=== PATIENT | female | born 1990 | race Caucasian/White ===

== ENCOUNTER 2023-12-16 16:22 | Emergency (ER) | payer SELFPAY ==
[~2023-12-16] VITALS: Ht 160 cm; Wt 69.0 kg
[2023-12-16 16:25] VITALS: BP 158/90; PULSE 78; RESP 16; TEMP 97.5; O2SAT 99
[2023-12-16] MEDS ORDERED: HYDROCODONE/ACETAMINOPHEN 5/325MG TABLET PO ONE (17:15)
[2023-12-16] MEDS ORDERED: KETOROLAC 30MG/ML VIAL IM ONE (17:15)
[2023-12-16] MEDS: KETOROLAC 30MG/ML VIAL IM NR (18:58)
[2023-12-16] MEDS: HYDROCODONE/ACETAMINOPHEN 5/325MG TABLET PO NR (18:58)
[2023-12-16] MEDS ORDERED: CEPH500C2 MT (19:58)
[2023-12-16] MEDS ORDERED: BO1 TP (19:59)
[2023-12-16] MEDS: LIDOCAINE HCL 1% 20ML VIAL INFIL NR (21:02)
[2023-12-16] MEDS: CEFAZOLIN SODIUM 1000MG/VIAL IM ONE (21:29)
== END 2023-12-16 21:32 | disposition home or self-care (01) ==
LOC: ER 16:22
DX: S62.607A Fracture of unspecified phalanx of left little finger, initial encounter for closed fracture (principal); S09.90XA Unspecified injury of head, initial encounter; W18.39XA Other fall on same level, initial encounter; Y93.89 Activity, other specified; Y92.89 Other specified places as the place of occurrence of the external cause; Y99.8 Other external cause status
CPT/HCPCS: 73130; 70450; 70486; 26742; 96372; 99152; 99285; J0690; J1885; J3490; Z7610